=== PATIENT | male | born 1950 | race Caucasian/White ===

== ENCOUNTER 2020-03-27 14:05 | Inpatient (IN) | payer MEDICARE, OTHER ==
[~2020-03-27] VITALS: Ht 185.4 cm; Wt 113.4 kg
[~2020-03-27 14:05] MED LIST: ALBUTEROL1.25 MG/3 INH; ALL DAY ALLERGY10 M3 PO; BUDESONIDE; CARDIZEM 60MG T60 MG PO; DICLOFENAC; ELIQUIS2.5 MG PO; GLUCOPHAGE500 MG PO; HYZAAR 100-12.1 EACH PO; LIPITOR TAB 2020 MG PO; LOPRESSOR100 MG PO; SINGULAIR10 MG PO; TESSALON PERLE100 MG PO; VENTOLIN HFA 66.7 GM INH; VIBRAMYCIN100 MG PO
[2020-03-27 16:47] LABS: HEMOGLOBIN 16.9 gm/dl (14.0-17.5); RED BLOOD COUNT 5.23 M/UL (4.20-5.50); WHITE BLOOD COUNT 12.4 K/UL (4.5-11.0)
[2020-03-27 17:08] LABS: BUN/CREATININE RATIO 22 (0-10)
[2020-03-28] MEDS ORDERED: CALCIUM 600 +1 EAC2 PO (00:01)
[2020-03-28] MEDS ORDERED: ALL DAY ALLERGY10 M2 PO (00:01)
[2020-03-28] MEDS ORDERED: BROMPHENIR-PSE118 ML PO (00:31)
[2020-03-28] MEDS ORDERED: PLAQUENIL 200200 MG PO (00:31)
[2020-03-28] MEDS ORDERED: VITAMIN C1000 MG PO (00:31)
[2020-03-28] MEDS ORDERED: ZINC-220220 MG PO (00:32)
[2020-03-28] MEDS ORDERED: VITAMIN D325 MC6 PO (00:32)
[2020-03-28 04:46] LABS: HEMOGLOBIN 15.2 gm/dl (14.0-17.5); RED BLOOD COUNT 4.76 M/UL (4.20-5.50)
[2020-03-28 04:51] LABS: WHITE BLOOD COUNT 6.4 K/UL (4.5-11.0)
[2020-03-28 05:01] LABS: BUN/CREATININE RATIO 31 (0-10)
[2020-03-29 03:28] LABS: BUN/CREATININE RATIO 40 (0-10)
[2020-03-30 17:00] LABS: HEMOGLOBIN 15.4 gm/dl (14.0-17.5); RED BLOOD COUNT 4.78 M/UL (4.20-5.50)
[2020-03-30 17:04] LABS: WHITE BLOOD COUNT 13.5 K/UL (4.5-11.0)
[2020-03-30 17:24] LABS: BUN/CREATININE RATIO 42 (0-10)
[2020-03-31 02:52] LABS: HEMOGLOBIN 14.7 gm/dl (14.0-17.5); RED BLOOD COUNT 4.61 M/UL (4.20-5.50); WHITE BLOOD COUNT 12.9 K/UL (4.5-11.0)
[2020-03-31 03:14] LABS: BUN/CREATININE RATIO 42 (0-10)
[2020-04-01 03:06] LABS: RED BLOOD COUNT 4.73 M/UL (4.20-5.50); WHITE BLOOD COUNT 10.4 K/UL (4.5-11.0)
[2020-04-01 03:34] LABS: BUN/CREATININE RATIO 37 (0-10)
[2020-04-03] MEDS ORDERED: DECADRON6 MG PO (11:05)
[2020-04-03] MEDS ORDERED: SPIRIVA18 MCG INH (11:05)
[2020-04-03] MEDS ORDERED: AMLODIPINE BESYL5 MG PO (11:18)
[2020-04-03] MEDS ORDERED: DILTIAZEM 24HR120 M1 PO (11:18)
== END 2020-04-03 17:22 | disposition home or self-care (01) | DRG 871 ==
LOC: ER1 14:05 → CDU 16:55 → PROG CARE 17:58 → CDU 17:58 → PROG CARE 03-28 09:49
PROVIDERS: Emergency Medicine; Internal Medicine; Physician Assistant Medical; ADMIT Internal Medicine
PROC: 8E0ZXY6 Isolation (ICD-10-PCS; principal; 2020-03-27)
PROC: XW13325 Transfusion of Convalescent Plasma (Nonautologous) into Peripheral Vein, Percutaneous Approach, New Technology Group 5 (ICD-10-PCS; 2020-03-27)
PROC: XW033E5 Introduction of Remdesivir Anti-infective into Peripheral Vein, Percutaneous Approach, New Technology Group 5 (ICD-10-PCS; 2020-03-27)
DX: A41.89 Other specified sepsis (principal); U07.1 COVID-19; J18.9 Pneumonia, unspecified organism; J96.01 Acute respiratory failure with hypoxia; I48.20 Chronic atrial fibrillation, unspecified; E87.3 Alkalosis; R65.20 Severe sepsis without septic shock; J44.9 Chronic obstructive pulmonary disease, unspecified; Z79.01 Long term (current) use of anticoagulants; E11.9 Type 2 diabetes mellitus without complications; Z87.891 Personal history of nicotine dependence; Z79.899 Other long term (current) drug therapy
CPT/HCPCS: 36415; 36600; 71045; 80048; 80053; 82803; 82962; 83735; 85025; 85027; 85379; 85610; 86900; 86901; 86927; 94760; 96365; 96366; 96372; 96375; 96376; 99285; G0378; J0456; J0692; J0696; J1100; J1650; J7030

== ENCOUNTER 2021-07-20 10:38 | Emergency (ER) | payer MEDICARE, OTHER ==
[~2021-07-20 10:38] MED LIST changes: +ALL DAY ALLERGY10 M2 PO; +AMLODIPINE BESYL5 MG PO; +BROMPHENIR-PSE118 ML PO; +CALCIUM 600 +1 EAC2 PO; +DECADRON6 MG PO; +DILTIAZEM 24HR120 M1 PO; +PLAQUENIL 200200 MG PO; +SPIRIVA18 MCG INH; +VITAMIN C1000 MG PO; +VITAMIN D325 MC6 PO; +ZINC-220220 MG PO
== END 2021-07-20 11:02 | disposition expired ==
LOC: ER1 10:38
DX: I46.9 Cardiac arrest, cause unspecified (principal); E11.9 Type 2 diabetes mellitus without complications; I48.20 Chronic atrial fibrillation, unspecified; Z79.01 Long term (current) use of anticoagulants; I25.2 Old myocardial infarction
CPT/HCPCS: 92950; 99285; J0171